=== PATIENT | female | born 1985 | race Caucasian/White ===

== ENCOUNTER → 2023-10-31 06:22 | Day surgery (SDC) | payer OTHER, SELFPAY | LOC: GI 06:22 | PROVIDERS: ATTENDING PHYSICIAN Internal Medicine Gastroenterology | DX: K64.0 First degree hemorrhoids (principal); K63.3 Ulcer of intestine; K52.89 Other specified noninfective gastroenteritis and colitis; D12.2 Benign neoplasm of ascending colon | CPT/HCPCS: 45380; 88305 ==